=== PATIENT | female | born 1990 | race Caucasian/White ===

== ENCOUNTER 2017-12-20 07:15 | Outpatient (CLI) | payer OTHER, SELFPAY ==
[2017-12-20 07:24] VITALS: BMI 26.9
--- NOTE | 2017-12-20 07:33 | US_ITS ---
STUDY: SECOND AND THIRD TRIMESTER OBSTETRICAL ULTRASOUND - LIMITED REASON FOR EXAM: Female, 27 years old. Bleeding. History of placenta previa. LMP: May 02, 2017. PRIOR ULTRASOUND: Comparison is made with prior study dated September 17, 2017. TECHNIQUE: Transabdominal ultrasound evaluation was performed. Transvaginal examination for assessment of the placenta. FINDINGS: There is a single intrauterine fetus. The fetus is in a cephalic presentation. There is demonstrated cardiac activity with a heart rate of 146 bpm. There is a normal amniotic fluid volume. The largest amniotic fluid pocket measures 5.4 cm. The amniotic fluid index (OSKAR) is 15.5 cm. The placenta is posterior and low lying but not previa in location. The lower margin of the placenta is at 2 cm from the cervix. There are Grade 2 placental changes. The cervix measures 2.6 cm in length. BIOMETRY: BPD: 8.02 cm: 32 weeks, 2 days HC: 30.14 cm: 33 weeks, 4 days AC: 26.97 cm: 31 weeks, 1 days FL: 6.41 cm: 32 weeks, 1 days Age by LMP: 33 weeks, 1 days. RASHI by LMP: February 06, 2018. age by prior US: 33 weeks, 0 days. RASHI by prior US: February 07, 2018. age by current US: 32 weeks, 4 days. RASHI by current US: February 10, 2018. Estimated weight: 1888 grams, +/- 276 grams, 14 percentile. Gender: Indeterminant US/OB Limited With Biometrics IMPRESSION: Single live intrauterine gestation with mean gestational age of 33 weeks. The measurements obtained today following the normal expected range. Low-lying posterior placenta. The inferior margin of the placenta is a 2 cm from the cervix. Electronically Signed: Kris López MD at 9:04 EDT Tel [phone], Service support ,
[2017-12-20] MEDS: 0.9% Saline Lock 10 ML Syringe IV ×2 (07:50→22:27)
[2017-12-20 08:07] LABS: Hemoglobin 11.7 g/dl (12.0-15.0); Mean Corp Hgb Conc 33.4 g/gl (32-36); Mean Corpuscular Hgb 31.2 pg (27.0-32.0); Mean Corpuscular Volume 93.3 fL (81-99); Mean Platelet Vol. 9.4 fl (6.2-12.0); Platelet Count 211 K/mm3 (150-450); RBC Distribution Width CV 13.9 % (11.6-14.6); RBC Distribution Width SD 47.2 fl (35.1-43.9); Red Blood Count 3.75 M/mm3 (4.2-5.4); White Blood Count 9.6 K/mm3 (4.4-11.0)
[2017-12-20 08:08] LABS: Scan Indicated on CBC? Y/N NO
[2017-12-20 08:37] LABS: International Normalized Ratio 1.1; Prothrombin Time (Protime)PT. 13.8 SECONDS (11.7-14.9)
[2017-12-20 08:38] LABS: Partial Thromboplast Time 26.6 Seconds (24.1-36.2)
[2017-12-20 08:45] LABS: Fibrinogen 373 mg/dl (203-444)
[2017-12-20] MEDS: Betamethasone/Betamethasone 30 MG/5 ML Vial 12 MG IM (08:48)
[2017-12-20] MEDS: NIFEdipine 10 MG Capsule 30 MG PO (14:07)
[2017-12-20 14:39] LABS: Absolute Lymphocyte Count 1.34 X10^3/ul (0.83-4.51); Absolute Neutrophil Count 8.9 X10^3/uL (2.0-7.7); Basophil# 0.01 X10^3/uL; Basophil% 0.1 % (0-1); Hematocrit 33.6 % (37-47); Hemoglobin 11.6 g/dl (12.0-15.0); Lymphocyte # 1.34 X10^3/ul (4.0); Lymphocyte % 12.9 % (19-41); Mean Corp Hgb Conc 34.5 g/gl (32-36); Mean Corpuscular Hgb 32.3 pg (27.0-32.0); Mean Corpuscular Volume 93.6 fL (81-99); Mean Platelet Vol. 9.4 fl (6.2-12.0); Monocyte# 0.14 X10^3/uL; Monocyte% 1.3 % (0-10); Neutrophil # 8.87 X10^3/uL (2.7-7.7); Neutrophil % 85.4 % (47-70); POSITIVE COUNT NO; POSITIVE DIFFERENTIAL NO; POSITIVE MORPHOLOGY NO; Platelet Count 242 K/mm3 (150-450); RBC Distribution Width CV 13.6 % (11.6-14.6); RBC Distribution Width SD 45.1 fl (35.1-43.9); Red Blood Count 3.59 M/mm3 (4.2-5.4); White Blood Count 10.4 K/mm3 (4.4-11.0)
[2017-12-20 14:51] LABS: Fibrinogen 370 mg/dl (203-444)
[2017-12-20 15:48] LABS: Group B Strep DNA By PCR Negative (Negative); Internal Control PASS; Probe Check PASS; Specimen Processing Control PASS
[2017-12-20] MEDS: NIFEdipine 10 MG Capsule PO ×2 (18:57→22:25)
[2017-12-21] MEDS: NIFEdipine 10 MG Capsule PO ×6 (02:04→22:35)
[2017-12-21] MEDS: Betamethasone/Betamethasone 30 MG/5 ML Vial 12 MG IM (08:45)
[2017-12-21] MEDS: 0.9% Saline Lock 10 ML Syringe IV (10:18)
--- NOTE | 2017-12-21 10:52 | PCM.HP.OB ---
- Problem List (1) Vaginal bleeding during Status: Acute (2) Placenta previa antepartum Status: Acute Comment: reviewed bleeding precautions. repeat US planned at 28-30 weeks. Plan primary cs if persistent at term. deliver at 37 weeks. (3) Supervision of high-risk Status: Acute Qualifiers: Comment: RASHI 02/06/18 Dat, following with chemicals distiller Karo Patricia History Date of Admission: 12/21/17 Final RASHI: 02/06/18 Gestational age: 33 Weeks and 2 Days History of this : late entry- admitted 12/20/17 at 9 am 27 yo @33w1d presents with vaginal bleeding and contractions. she has had a complicated by placenta previa and has had intermittent bleeding. she is following with a clay products glazer Karo Patricia for care. She feels contractions every few minutes and did have intercourse this morning. she denies any LOF and feels some pelvic pressure. she had bleeding enough to saturate a pad and passed a handful of clots. She denies any abdominal trauma Pertinent Past Medical History: Medical History Placenta previa antepartum (Acute) Supervision of high-risk (Acute) Placenta previa (Acute) Surgical History D & C (Acute) Family History Grandmother Cancer Social History additional social history: - Dat Pregancy History 6 Elective abortions Hx Para 3 Spontaneous abortions Hx # Term Pregnancies Ectopic pregnancies Hx # Pregnancies Multiple births # of living children Past Pregnancies Del. Date Name GA/Weeks Outcome Route Bth Weight Gen Labor Lgth Anesthesia Del Locatn Provider FOB Unknown 2012 Stu 40 live - full term Male [facility] Unknown 2013 Gino 39 live - full term Male [facility] Unknown 2015 Leoncio 40 live - full term Male [facility] Allergies No Known Allergies Allergy (Verified 12/20/17 11:13) Current Medications Acetaminophen (Tylenol) 650 mg PO Q6H PRN PRN PRN Reason: Mild Pain (0-3/10) Nifedipine (Procardia) 10 mg PO Q4H BRUNA Last Admin: 12/21/17 10:12 Dose: 10 mg Ondansetron HCl (Zofran) 4 mg IV Q8H PRN PRN PRN Reason: Nausea Only Multivit/Folic Acid/Iron (Prenatabs Fa) 1 tablet PO DAILY@1200 BRUNA Promethazine HCl (Phenergan (Ll)) 12.5 mg IV Q4H PRN PRN PRN Reason: NAUSEA/VOMITING Sodium Chloride () 10 ml IV PRN PRN PRN Reason: SALINE FLUSH Last Admin: 12/20/17 22:27 Dose: 10 ml Smoking Status: Never smoker Alcohol: None Drug Use: none Number of Fetus(es): 1 - fht 140s moderate variability reactive no decels toco q 2-3 minutes Review of Systems Constitutional: Denies: Chills, Fever, Weight Change HEENT: Denies: Head Aches, Sinus Congestion, Sinus Drainage Cardiovascular: Denies: Chest Pain, Palpitations Respiratory: Denies: Cough, Shortness of breath at rest, Sputum production Gastrointestinal: Reports: Abdominal Pain. Denies: Nausea, Vomiting Genitourinary: Denies: Dysuria Gynecological: Reports: Vaginal bleeding Musculoskeletal: Denies: Joint Pain, Joint Tenderness Skin: Denies: Rash, Wounds Neurological: Denies: Numbness, Tingling, Focal weakness Psychiatric: Denies: Anxiety, Depression, Homicidal Ideations, Suicidal Ideations Hematologic/ Lymphatic: Denies: Easy Bruising, Easy Bleeding Physical Exam General: Alert, Oriented x3, No apparent distress Cardiovascular: Regular rate Lungs: Normal air movement Abdomen: Soft, Non Tender, Gravid Extremities:: No edema Estimated gestational size: Small for gestational age Presentation: Cephalic Cervix Dilation (cm): 1 Station: -3 Effacement (%): 50 Assessment/Plan Active and Suspected Problems (Last Updated 09/17/17 @ 13:17 by Rosalba Landin) Vaginal bleeding during (Acute) 27 yo @ 33w1d presents with vaginal bleeding 1. vaginal bleeding- possible abruption versus PTL, recommend US to confirm placental location and continuous monitoring. - follow up- US shows low lying placenta 2 cm away from os, 14 percentile growth, no abnormalities seen. serial cbc and fibrinogen stable, expectant management 2. PTL- procardia 3. prematurity- BMZ
--- NOTE | 2017-12-21 10:59 | HP.PCM_ITS ---
- Problem List (1) Vaginal bleeding during Status: Acute (2) Placenta previa antepartum Status: Acute Comment: reviewed bleeding precautions. repeat US planned at 28 -30 weeks. Plan primary cs if persistent at term. deliver at 37 weeks. (3) Supervision of high-risk Status: Acute Qualifiers: Comment: RASHI 02/06/18 Dat, following with photographer aerial Karo Patricia History Date of Admission: 12/21/17 Final RASHI: 02/06/18 Gestational age: 33 Weeks and 2 Days History of this : late entry- admitted 12/20/17 at 9 am 27 yo @33w1d presents with vaginal bleeding and contractions. she has had a complicated by placenta previa and has had intermittent bleeding. she is following with a relay motorman Karo Patricia for care. She feels contractions every few minutes and did have intercourse this morning. she denies any LOF and feels some pelvic pressure. she had bleeding enough to saturate a pad and passed a handful of clots. She denies any abdominal trauma Pertinent Past Medical History: Medical History Placenta previa antepartum (Acute) Supervision of high-risk (Acute) Placenta previa (Acute) Surgical History D & C (Acute) Family History Grandmother Cancer Social History additional social history: - Dat Pregancy History 6 Elective abortions Hx Para 3 Spontaneous abortions Hx # Term Pregnancies Ectopic pregnancies Hx # Pregnancies Multiple births # of living children Past Pregnancies Del. 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 Conservation Professor [facility] Unknown 2015 Leoncio 40 live - full term Male Environmental Conservation [facility] Allergies No Known Allergies Allergy (Verified 12/20/17 11:13) Current Medications Acetaminophen (Tylenol) 650 mg PO Q6H PRN PRN PRN Reason: Mild Pain (0-3/10) Nifedipine (Procardia) 10 mg PO Q4H BRUNA Last Admin: 12/21/17 10:12 Dose: 10 mg Ondansetron HCl (Zofran) 4 mg IV Q8H PRN PRN PRN Reason: Nausea Only Multivit/Folic Acid/Iron (Prenatabs Fa) 1 tablet PO DAILY@1200 BRUNA Promethazine HCl (Phenergan (Ll)) 12.5 mg IV Q4H PRN PRN PRN Reason: NAUSEA/VOMITING Sodium Chloride () 10 ml IV PRN PRN PRN Reason: SALINE FLUSH Last Admin: 12/20/17 22:27 Dose: 10 ml Smoking Status: Never smoker Alcohol: None Drug Use: none Number of Fetus(es): 1 - fht 140s moderate variability reactive no decels toco q 2-3 minutes Review of Systems Constitutional: Denies: Chills, Fever, Weight Change HEENT: Denies: Head Aches, Sinus Congestion, Sinus Drainage Cardiovascular: Denies: Chest Pain, Palpitations Respiratory: Denies: Cough, Shortness of breath at rest, Sputum production Gastrointestinal: Reports: Abdominal Pain. Denies: Nausea, Vomiting Genitourinary: Denies: Dysuria Gynecological: Reports: Vaginal bleeding Musculoskeletal: Denies: Joint Pain, Joint Tenderness Skin: Denies: Rash, Wounds Neurological: Denies: Numbness, Tingling, Focal weakness Psychiatric: Denies: Anxiety, Depression, Homicidal Ideations, Suicidal Ideations Hematologic/ Lymphatic: Denies: Easy Bruising, Easy Bleeding Physical Exam General: Alert, Oriented x3, No apparent distress Cardiovascular: Regular rate Lungs: Normal air movement Abdomen: Soft, Non Tender, Gravid Extremities:: No edema Estimated gestational size: Small for gestational age Presentation: Cephalic Cervix Dilation (cm): 1 Station: -3 Effacement (%): 50 Assessment/Plan Active and Suspected Problems (Last Updated 09/17/17 @ 13:17 by Rosalba Landin) Vaginal bleeding during (Acute) 27 yo @ 33w1d presents with vaginal bleeding 1. vaginal bleeding- possible abruption versus PTL, recommend US to confirm placental location and continuous monitoring. - follow up- US shows low lying placenta 2 cm away from os, 14 percentile growth , no abnormalities seen. serial cbc and fibrinogen stable, expectant management 2. PTL- procardia 3. prematurity- BMZ
[2017-12-21] MEDS: Prenatal Vits Tablet 1 TABLET PO (11:59)
--- NOTE | 2017-12-21 20:45 | PCM.PN.OB ---
Patient Problems: Active and Suspected Problems (Last Updated 09/17/17 @ 13:17 by Rosalba Landin) Vaginal bleeding during (Acute) Subjective: doing well- less bleeding but still present until noon. no CP SOB decreased contractions. she denies any lof. - Physical Exam General: Alert, Oriented x3 Weight: 147 lb 0.773 oz Body Mass Index (BMI) 26.9 Assessment/Plan Active and Suspected Problems (Last Updated 09/17/17 @ 13:17 by Rosalba Landin) Vaginal bleeding during (Acute) 27 yo @ 33w1d presents with vaginal bleeding 1. vaginal bleeding- possible abruption versus PTL, serial cbc and fibrinogen stable, expectant management 2. PTL- procardia 3. prematurity- BMZ
[2017-12-22] MEDS: NIFEdipine 10 MG Capsule PO ×2 (02:16→05:55)
[2017-12-22] MEDS: 0.9% Saline Lock 10 ML Syringe IV (02:16)
--- NOTE | 2017-12-22 07:25 | PCM.DC ---
- Discharge Diagnoses Current Active Problems: Current Active and Chronic Problems (Last Updated 09/17/17 @ 13:17 by Rosalba Landin) Vaginal bleeding during (Acute) Reason(s) for Visit for Discharge Instructions: labor You will use the following diet at home:: Regular Discharge Activity: - - light activity May resume sexual activity in: 2 weeks Weight Bearing Status: Full weight bearing Lifting Restrictions: 20 lbs Call your doctor if you observe: Fever of 101 or Higher, - - vaginal bleeding, contractions that are regular, decreased movement Additional Instructions: follow up with dr perez on wednesday for an nst call [phone] Allergies/Adverse Reactions: Allergies No Known Allergies Allergy (Verified 12/20/17 11:13) Medications to take at Discharge Calcium/Magnesium/Vitamin D3 [Jus-Mag Complex 300-150 mg Tab] 1 tab PO DAILY 12/20/17 [place] 450 mg PO PRN PRN 12/20/17 Ferrous Sulfate [Iron] 325 mg PO BID 12/20/17 Vit Calc,Iron,Folic [ Vitamins] 1 each PO DAILY 12/20/17 Primary Care Physician: Care Physician,No Primary [Primary Care Provider] - Please Follow Up With: Dana Perez MD - [phone]
--- NOTE | 2017-12-22 09:12 | PCM.PN.OB ---
Patient Problems: Active and Suspected Problems (Last Updated 09/17/17 @ 13:17 by Rosalba Landin) Vaginal bleeding during (Acute) Subjective: no arrhythmia heard yesterday, doing well. no significant bleeding no regular ctx. tolerating po - Physical Exam General: Alert, Oriented x3 Weight: 147 lb 0.773 oz Body Mass Index (BMI) 26.9 Assessment/Plan Active and Suspected Problems (Last Updated 09/17/17 @ 13:17 by Rosalba Landin) Vaginal bleeding during (Acute) 27 yo @ 33w1d presents with vaginal bleeding 1. vaginal bleeding secondary to small abruption and PTL, serial cbc and fibrinogen stable, stable dc home fu in office, bleeding precautions reviewed. placenta previa resolved now only a low lying placenta at 2 cm 2. PTL- procardia 3. prematurity- s/p BMZ
== END 2017-12-22 09:00 | disposition home or self-care (01) ==
LOC: WPOUT 07:23 → WP 07:23
PROVIDERS: Visit Provider Obstetrics & Gynecology
DX: O44.53 Low lying placenta with hemorrhage, third trimester (principal); O45.93 Premature separation of placenta, unspecified, third trimester; O60.03 Preterm labor without delivery, third trimester; Z3A.33 33 weeks gestation of pregnancy
CPT/HCPCS: 36415; 59025; 59050; 76815; 76816; 85025; 85027; 85384; 85610; 85730; 86850; 86900; 87081; 87653; 96372; 99218; A4216; G0378; J0702

== ENCOUNTER 2017-12-27 09:35 | Outpatient (CLI) | payer OTHER, SELFPAY ==
[2017-12-27 10:02] VITALS: BMI 26.9
--- NOTE | 2017-12-27 10:05 | US_ITS ---
STUDY: OBSTETRICAL ULTRASOUND - BIOPHYSICAL PROFILE REASON FOR EXAM: Female, 27 years old. well-being. LMP: May 02, 2017. PRIOR ULTRASOUND: Comparison is made with prior study December 20, 2017. TECHNIQUE: Transabdominal ultrasound evaluation was performed. FINDINGS: There is a single intrauterine fetus. The fetus is in a cephalic presentation. There is demonstrated cardiac activity with a heart rate of 149 bpm. There is a normal amniotic fluid volume. The largest amniotic fluid pocket measures 3.5 cm x 3.7 cm. The amniotic fluid index (OSKAR) is 13.9 cm. The placenta is posterior in location and is not low lying. There are Grade 0 placental changes. Age by LMP: 34 weeks, 1 days. RASHI by LMP: February 06, 2018. age by prior US: 33 weeks, 6 days. RASHI by prior US: February 08, 2018. Gender: 2 BIOPHYSICAL PROFILE: Breathing Movements (FBM): 2 Gross Body Movements (GBM): 2 Tone (FT): 2 Amniotic Fluid Volume (AFV): 2 TOTAL SCORE: 8 / 8 US/Biophysical Profile IMPRESSION: Normal biophysical profile of 05/18. Electronically Signed: Kris López MD at 14:50 EDT Tel [phone], Service support ,
[2017-12-27 10:40] LABS: Absolute Lymphocyte Count 2.14 X10^3/ul (0.83-4.51); Absolute Neutrophil Count 6.4 X10^3/uL (2.0-7.7); Basophil# 0.03 X10^3/uL; Basophil% 0.3 % (0-1); Eosinophil# 0.03 X10^3/uL; Eosinophils% 0.3 % (0-5); Hematocrit 33.7 % (37-47); Hemoglobin 11.3 g/dl (12.0-15.0); Lymphocyte # 2.14 X10^3/ul (4.0); Lymphocyte % 22.3 % (19-41); Mean Corp Hgb Conc 33.5 g/gl (32-36); Mean Corpuscular Hgb 31.8 pg (27.0-32.0); Mean Corpuscular Volume 94.9 fL (81-99); Mean Platelet Vol. 9.2 fl (6.2-12.0); Monocyte# 0.96 X10^3/uL; Neutrophil % 66.6 % (47-70); POSITIVE COUNT NO; POSITIVE DIFFERENTIAL NO; POSITIVE MORPHOLOGY NO; Platelet Count 252 K/mm3 (150-450); RBC Distribution Width CV 13.7 % (11.6-14.6); Red Blood Count 3.55 M/mm3 (4.2-5.4); White Blood Count 9.6 K/mm3 (4.4-11.0)
[2017-12-27 10:50] LABS: Fibrinogen 438 mg/dl (203-444)
--- NOTE | 2017-12-27 12:30 | OB.TRI.NOTE ---
History of Present Illness Date of Service: 12/27/17 Was patient seen by the physician?: Yes Reason For Visit: EXTENDED MONITORING Date of Service: 12/27/17 Final RASHI: 02/06/18 Gestational age: 34 Weeks and 1 Days History of Present Illness: 27 yo @ 34w1d presents for followup of chronic abruption. she also had a transient FHT abnormality last week upon admission for the abruption and PTL. she denies any vaginal bleeding and has a low lying placenta 2 cm away from the cervix. she has been inactive and denies any regular ctx and feels good fm. 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 normal labs. discussed precautions and fu the end of the week for fht check with her cigarette tipper and follow weekly until delivery with weekly NSTs.
--- NOTE | 2017-12-27 12:36 | OB.TRI.HP_ITS ---
History of Present Illness Date of Service: 12/27/17 Was patient seen by the physician?: Yes Reason For Visit: EXTENDED MONITORING Date of Service: 12/27/17 Final RASHI: 02/06/18 Gestational age: 34 Weeks and 1 Days History of Present Illness: 27 yo @ 34w1d presents for followup of chronic abruption. she also had a transient FHT abnormality last week upon admission for the abruption and PTL. she denies any vaginal bleeding and has a low lying placenta 2 cm away from the cervix. she has been inactive and denies any regular ctx and feels good fm. she was on the monitor in the office and had a spontaneous decel down into the 100s for 1 minute after an acceleration Home Medications Medication Instructions Recorded Calcium/Magnesium/Vitamin D3 1 tab PO DAILY 12/20/17 [Jus-Mag Complex 300-150 mg Tab] [place] 450 mg PO PRN PRN 12/20/17 Ferrous Sulfate [Iron] 325 mg PO BID 12/20/17 Vit Calc,Iron,Folic 1 each PO DAILY 12/20/17 [ Vitamins] Allergies No Known Allergies Allergy (Verified 12/20/17 11:13) - Pertinent Past Medical History Pertinent Past Medical History: negative ROS: ent surgeon: negative general negative Physical Exam General: Alert, Oriented x3, No apparent distress Lungs: Clear to auscultation Abdomen: Soft, Non Tender, Gravid NST - FHR Rate Baby A Baseline: 130-140 Variability:: Moderate Accelerations:: 15 x 15 Decelerations:: None NST Reactive:: Yes FHR Category:: Category I Uterine Activity:: irritability Impression/Plan 27 yo @ 34w1d presents with fht abnormality- 8/8 bpp and extended monitoring WNL. normal labs. discussed precautions and fu the end of the week for fht check with her truck manager and follow weekly until delivery with weekly NSTs.
== END 2017-12-27 12:45 | disposition home or self-care (01) ==
LOC: WPOUT 09:45 → WP 09:45
PROVIDERS: Visit Provider Obstetrics & Gynecology
DX: O44.43 Low lying placenta NOS or without hemorrhage, third trimester (principal); O45.93 Premature separation of placenta, unspecified, third trimester; Z3A.34 34 weeks gestation of pregnancy
CPT/HCPCS: 36415; 59025; 59050; 76818; 85025; 85384; 86850; 86900; 99218; J7120; G0378